=== PATIENT | male | born 1960 | race African-American/Black ===

== ENCOUNTER 2018-09-29 19:30 | Inpatient (IN) ==
[2018-09-29 21:13] LABS: Basophils % 0.4 % (0.0-0.8); Hematocrit 44.8 VOL% (42.0-52.0); Hemoglobin 14.2 GM/DL (14.0-18.0); Immature Granulocytes % 1.1 %; Immature Granulocytes Absolute 0.06 #; Lymphocytes # 0.8 10*3/uL (1.4-4.0); Lymphocytes % 14.2 % (21.2-54.2); Mean Corpuscular HGB Conc 31.7 GM/DL (32-36); Mean Corpuscular Volume 86.7 FL (87-102); Mean Platelet Volume 10.2 FL (9.6-12.0); Monocytes % 2.7 % (1.7-12.7); Neutrophils % 81.6 % (38.7-73.9); Platelet Count 247 T/CUMM (130-400); Red Blood Count 5.17 MC/CUMM (3.8-5.5); Red Cell Distribution Width 12.4 % (9.3-17.3); White Blood Count 5.6 T/CUMM (4-12)
[2018-09-29] MEDS ORDERED: ONDANSETRON 4 MG/2 ML VIAL IV STA (21:17)
[2018-09-29] MEDS ORDERED: SODIUM CHLORIDE 0.9% 1,000 ML IV STA (21:17)
[2018-09-29 21:45] LABS: Allen Test Positive; Pt O2 Delivery Device Room Air
[2018-09-29 21:46] LABS: ABG Base Excess -2.2 MMOL/L (-2.5-2.5); ABG HCO3 22.6 MMOL/L (20-26); ABG Oxygen Saturation 97.7 % (95-100); ABG PCO2 28.5 MM HG (35-48); ABG PH 7.461 (7.35-7.45); ABG TCO2 17.5 MMOL/L (23-27)
[2018-09-29 21:52] LABS: Alanine Aminotransferase 38 U/L (16-61); Albumin 2.6 G/DL (3.4-5.0); Alkaline Phosphatase 63 U/L (45-117); Aspartate Amino Transferase 72 U/L (0-37); Blood Urea Nitrogen 33 MG/DL (7-18); Calcium 9.4 MG/DL (8.5-10.1); Osmolality,Calculated 290.9 MOS/KG (273-304); Total Protein 7.8 G/DL (6.4-8.3)
[2018-09-29 21:55] LABS: Amylase 51 U/L (25-115); Troponin I 0.049 NG/ML (0.00-0.045)
[2018-09-29 21:55] LABS: Glucose 574 MG/DL (74-106)
[2018-09-29] MEDS ORDERED: INSULIN REGULAR 100 UNIT/ML IV STA (22:00)
[2018-09-29] MEDS ORDERED: SODIUM CHLORIDE 0.9% 1,900 ML IV ONE (22:17)
[2018-09-29] MEDS ORDERED: PIPERACILLIN/TAZOBACTAM 3,375 MG in SODIUM CHLORIDE 0.9% 100 ML IV SCH (22:30)
[2018-09-29 23:43] LABS: Platelet Estimate Adequate
[2018-09-30] MEDS ORDERED: ALBUTEROL 2.5 MG/3 ML NEB RESP TX PRN (00:03)
[2018-09-30] MEDS ORDERED: BISACODYL 5 MG TABLET PO PRN (00:03)
[2018-09-30] MEDS ORDERED: ACETAMINOPHEN 325 MG TABLET PO PRN (00:03)
[2018-09-30] MEDS ORDERED: NICOTINE 21 MG/24 HR PATCH TRANSDERM PRN (00:03)
[2018-09-30] MEDS ORDERED: GLUCAGON 1 MG VIAL IM PRN ×2 (00:03→05:17)
[2018-09-30] MEDS ORDERED: ONDANSETRON 4 MG/2 ML VIAL IV PRN (00:03)
[2018-09-30] MEDS ORDERED: DEXTROSE 50% 25 GM/50 ML VIAL IV PRN ×3 (00:03→05:17)
[2018-09-30] MEDS ORDERED: MORPHINE 4 MG/1 ML VIAL IV PRN (00:03)
[2018-09-30] MEDS ORDERED: MAGNESIUM SULF RIDER 2 GM in PREMIX 1 EACH IV PRN (00:17)
[2018-09-30] MEDS ORDERED: POTASSIUM CHLORIDE RIDER 10 MEQ in PREMIX 1 EACH IV PRN (00:17)
[2018-09-30] MEDS ORDERED: MAGNESIUM SULF RIDER 4 GM in PREMIX 1 EACH IV PRN (00:17)
[2018-09-30] MEDS ORDERED: SODIUM PHOSPHATE INJ 15.9 MMOL in SODIUM CHLORIDE 0.9% 250 ML IV PRN (00:17)
[2018-09-30] MEDS ORDERED: SODIUM BICARB INJ 100 MEQ in STERILE WATER INJ 400 ML IV PRN (00:17)
[2018-09-30] MEDS ORDERED: INSULIN REGULAR 100 UNIT/ML IV ONE (00:17)
[2018-09-30] MEDS ORDERED: INSULIN REGULAR DRIP 100 ML IV SCH (00:30)
[2018-09-30 00:59] LABS: Apearance,Urine CLEAR (Clear); Bacteria,Urine Occasional /HPF (Few); Bilirubin,Urine Negative (Negative); Blood, Urine Small mg/dL (Negative); Glucose,Urine (UA) >=500 mg/dL (Negative); Hyaline Casts,Urine 29 /LPF (0-3); Ketones,Urine 20 mg/dL (Negative); Mucus,Urine Occasional /LPF (Occasional); Nitrite,Urine Negative (Negative); Protein,Urine 100 MG/DL; RBC,Urine <1 /HPF (0-4); Squamous Epithelial Cell,Urine Occasional /HPF (0-10); Urine Color Yellow (Yellow); Urine Specific Gravity 1.029 (1.001-1.035); Urine Urobilinogen < 2.0 EU/DL (0.2-1.0); WBC,Urine 1 /HPF (0-6)
[2018-09-30 01:08] LABS: Barbiturates Screen,Urine Negative (Negative); Benzodiazepines Screen,Urine Negative (Negative); Cannabinoid Screen,Urine Negative (Negative); Opiate Screen,Urine Negative (Negative); Phencyclidine Screen,Urine Negative (Negative)
[2018-09-30] MEDS: SODIUM CHLORIDE 0.9% 1,000 ML IV SCH (02:00)
[2018-09-30 02:05] LABS: ABG Base Excess -1.9 MMOL/L (-2.5-2.5); ABG HCO3 21.8 MMOL/L (20-26); ABG Oxygen Saturation 97.9 % (95-100); ABG PCO2 33.7 MM HG (35-48); ABG PH 7.429 (7.35-7.45); ABG PO2 124.9 MM HG (80-95); ABG TCO2 22.9 MMOL/L (23-27)
[2018-09-30 04:12] LABS: ABG Base Excess -0.9 MMOL/L (-2.5-2.5); ABG HCO3 23.6 MMOL/L (20-26); ABG Oxygen Saturation 97.9 % (95-100); ABG PCO2 36.3 MM HG (35-48); ABG PH 7.414 (7.35-7.45); ABG TCO2 20.6 MMOL/L (23-27); Allen Test Positive; Pt O2 Delivery Device Room Air
[2018-09-30 05:01] LABS: Bilirubin,Total 0.6 MG/DL (0.2-1.0); Calcium 8.2 MG/DL (8.5-10.1); Osmolality,Calculated 289.4 MOS/KG (273-304); Total Protein 6.4 G/DL (6.4-8.3)
[2018-09-30 05:50] LABS: Hematocrit 35.1 VOL% (42.0-52.0); Hemoglobin 11.2 GM/DL (14.0-18.0); Immature Granulocytes % 1.4 %; Immature Granulocytes Absolute 0.05 #; Lymphocytes # 0.9 10*3/uL (1.4-4.0); Lymphocytes % 24.6 % (21.2-54.2); Mean Corpuscular HGB Conc 31.9 GM/DL (32-36); Mean Corpuscular Volume 86.7 FL (87-102); Mean Platelet Volume 9.9 FL (9.6-12.0); Monocytes % 3.8 % (1.7-12.7); Neutrophils % 70.2 % (38.7-73.9); Platelet Count 175 T/CUMM (130-400); Red Blood Count 4.05 MC/CUMM (3.8-5.5); Red Cell Distribution Width 12.2 % (9.3-17.3); White Blood Count 3.5 T/CUMM (4-12)
[2018-09-30 05:51] LABS: Hepatitis B Core IgM Quant 0.11 Index; Hepatitis B Surface Ag Quant < 0.10 Index; Hepatitis B Surface Ag Result Negative (Negative); Hepatitis C Virus Ab Quant 0.22 Index; Hepatitis C Virus Ab Result Negative (Negative)
[2018-09-30] MEDS: INSULIN REGULAR 100 UNIT/ML SUBCUT SCH ×4 (06:18→21:15)
[2018-09-30 06:22] LABS: Hypochromasia Slight; Platelet Estimate Adequate
[2018-09-30 06:53] LABS: HIV Antigen/Antibody Result Nonreactive (Nonreactive)
[2018-09-30 08:53] LABS: Calcium 8.2 MG/DL (8.5-10.1); Osmolality,Calculated 286.4 MOS/KG (273-304)
[2018-09-30] MEDS: PANTOPRAZOLE 40 MG TABLET PO SCH (09:28)
[2018-09-30] MEDS: LEVOFLOXACIN 500 MG TABLET PO SCH (09:28)
[2018-09-30] MEDS: LACTATED RINGERS 1,000 ML IV SCH ×2 (09:30→17:41)
[2018-09-30] MEDS ORDERED: SODIUM CHLORIDE 0.45% 1,000 ML IV SCH (17:17)
[2018-09-30] MEDS: glipiZIDE 5 MG TABLET PO SCH (17:45)
[2018-10-01] MEDS: LACTATED RINGERS 1,000 ML IV SCH ×4 (00:50→22:49)
[2018-10-01] MEDS: SODIUM CHLORIDE 0.9% 1,000 ML IV SCH (00:57)
[2018-10-01] MEDS: INSULIN REGULAR 100 UNIT/ML SUBCUT SCH ×5 (00:57→20:28)
[2018-10-01 04:33] LABS: Hematocrit 33.1 VOL% (42.0-52.0); Hemoglobin 10.4 GM/DL (14.0-18.0); Immature Granulocytes % 1.3 %; Immature Granulocytes Absolute 0.03 #; Lymphocytes # 0.8 10*3/uL (1.4-4.0); Lymphocytes % 35.9 % (21.2-54.2); Mean Corpuscular HGB Conc 31.4 GM/DL (32-36); Mean Platelet Volume 9.9 FL (9.6-12.0); Monocytes % 4.3 % (1.7-12.7); Neutrophils % 58.5 % (38.7-73.9); Platelet Count 177 T/CUMM (130-400); Red Blood Count 3.85 MC/CUMM (3.8-5.5); Red Cell Distribution Width 12.3 % (9.3-17.3); White Blood Count 2.3 T/CUMM (4-12)
[2018-10-01 04:59] LABS: Calcium 8.4 MG/DL (8.5-10.1); Osmolality,Calculated 278.5 MOS/KG (273-304)
[2018-10-01 05:22] LABS: Platelet Estimate Adequate
[2018-10-01] MEDS: PANTOPRAZOLE 40 MG TABLET PO SCH (09:02)
[2018-10-01] MEDS: glipiZIDE 5 MG TABLET PO SCH ×2 (09:02→16:49)
[2018-10-01] MEDS: LEVOFLOXACIN 500 MG TABLET PO SCH (09:02)
[2018-10-02] MEDS: LACTATED RINGERS 1,000 ML IV SCH (06:25)
[2018-10-02] MEDS: INSULIN REGULAR 100 UNIT/ML SUBCUT SCH ×2 (09:08→13:34)
[2018-10-02] MEDS: glipiZIDE 5 MG TABLET PO SCH (09:19)
[2018-10-02] MEDS: PANTOPRAZOLE 40 MG TABLET PO SCH (09:19)
[2018-10-02] MEDS: LEVOFLOXACIN 500 MG TABLET PO SCH (09:19)
[2018-10-02 12:21] VITALS: BP 131/77
== END 2018-10-02 13:18 | disposition home or self-care (01) | DRG 638 ==
LOC: N.ED 19:30 → N.EDINP 09-30 00:04 → SUATTDRO 09-30 00:04 → N.CC 09-30 03:55 → N.4E 10-01 05:28
PROVIDERS: ADMIT Internal Medicine; ATTEND Emergency Medicine

== ENCOUNTER 2022-04-03 01:19 | Inpatient (IN) ==
[2022-04-03] MEDS ORDERED: SODIUM CHLORIDE 0.9% 1,000 ML IV STA ×2 (01:55→02:49)
[2022-04-03 02:20] LABS: Basophils # 0.1 10*3/uL (0.0-0.2); Basophils % 0.3 % (0.0-0.8); Hematocrit 42.3 VOL% (42.0-52.0); Hemoglobin 13.4 GM/DL (14.0-18.0); Immature Granulocytes Absolute 0.49 #; Lymphocytes # 0.7 10*3/uL (1.4-4.0); Lymphocytes % 2.8 % (21.2-54.2); Mean Corpuscular HGB Conc 31.7 GM/DL (32-36); Mean Corpuscular Volume 90.6 FL (87-102); Mean Platelet Volume 9.5 FL (9.6-12.0); Monocytes # 1.3 10*3/uL (0.11-0.8); Monocytes % 5.2 % (1.7-12.7); Neutrophils % 89.7 % (38.7-73.9); Platelet Count 392 T/CUMM (130-400); Red Blood Count 4.67 MC/CUMM (3.8-5.5); White Blood Count 24.7 T/CUMM (4-12)
[2022-04-03 02:45] LABS: Albumin 2.4 G/DL (3.4-5.0); Bilirubin,Total 0.5 MG/DL (0.20-1.00); Calcium 10.8 MG/DL (8.5-10.1); Osmolality,Calculated 293.9 MOS/KG (273-304); Potassium 5.1 MMOL/L (3.5-5.1); Total Protein 9.7 G/DL (6.4-8.2)
[2022-04-03] MEDS ORDERED: INSULIN REGULAR 100 UNIT/ML IV STA (02:49)
[2022-04-03 02:50] LABS: Thyroid Stimulating Hormone 1.4 uIU/ml (0.358-3.74)
[2022-04-03 03:00] LABS: Band Neutrophils 3 % (0-10); Lymphocytes 4 % (20-55); Platelet Estimate Adequate; Total Cells Counted 100
[2022-04-03 03:07] LABS: Arterial Base Excess iSTAT -15 MMOL/L (-2.5-2.5); Arterial Bicarbonate iSTAT 10.1 MMOL/L (20-26); Arterial O2 Saturation iSTAT 98 % (95-100); Arterial PCO2 iSTAT 22 MM HG (35-48); Arterial PO2 iSTAT 114 MM HG (80-95); Arterial Total CO2 iSTAT 11 MMO/L (23-27); Arterial pH iSTAT 7.263 (7.35-7.45)
[2022-04-03] MEDS ORDERED: INSULIN REGULAR DRIP 100 ML IV PRN (03:31)
[2022-04-03 03:58] LABS: Hyaline Casts,Urine 3 /LPF (0-3); Mucus,Urine Occasional /LPF (Occasional); RBC,Urine 1 /HPF (0-4); Squamous Epithelial Cell,Urine Occasional /HPF (0-10)
[2022-04-03 03:59] LABS: Bilirubin,Urine Small mg/dL (Negative); Blood, Urine Trace mg/dL (Negative); Glucose,Urine (UA) 500 mg/dL (Negative); Ketones,Urine >160 mg/dL (Negative); Nitrite,Urine Negative (Negative); Protein,Urine Negative (Negative); Urine Appearance Clear (Clear); Urine Color Light Yellow (Yellow); Urine Specific Gravity 1.025 (1.001-1.035); Urine Urobilinogen 0.2 eU/dL (<2.0)
[2022-04-03] MEDS ORDERED: MAGNESIUM SULF RIDER 2 GM/50 ML PREMIX IV PRN (04:17)
[2022-04-03] MEDS ORDERED: SODIUM PHOSPHATE INJ 16.4 MMOL in SODIUM CHLORIDE 0.9% 250 ML IV PRN (04:17)
[2022-04-03] MEDS ORDERED: MAGNESIUM SULF RIDER 4 GM/100 ML PREMIX IV PRN (04:17)
[2022-04-03] MEDS ORDERED: SODIUM BICARB INJ 100 MEQ in STERILE WATER INJ 400 ML IV PRN (04:17)
[2022-04-03] MEDS ORDERED: hydrALAZINE 20 MG/1 ML VIAL IV PRN (04:21)
[2022-04-03] MEDS ORDERED: ALBUTEROL 2.5 MG/3 ML NEB RESP TX PRN (04:21)
[2022-04-03] MEDS ORDERED: ONDANSETRON 4 MG/2 ML VIAL IV PRN (04:21)
[2022-04-03] MEDS ORDERED: DEXTROSE 10% 250 ML BAG IV PRN ×2 (04:26)
[2022-04-03] MEDS: SODIUM CHLORIDE 0.9% 1,000 ML IV SCH ×2 (04:37→06:35)
[2022-04-03 05:17] LABS: Calcium 9.3 MG/DL (8.5-10.1); Osmolality,Calculated 300.7 MOS/KG (273-304); Potassium 4.6 MMOL/L (3.5-5.1)
[2022-04-03 08:38] LABS: Calcium 9.2 MG/DL (8.5-10.1); Osmolality,Calculated 291.8 MOS/KG (273-304); Potassium 4.6 MMOL/L (3.5-5.1)
[2022-04-03] MEDS ORDERED: ENOXAPARIN 40 MG/0.4 ML SYRINGE SUBCUT SCH (09:00)
[2022-04-03] MEDS ORDERED: SODIUM CHLORIDE 0.9% 1,000 ML IV SCH (09:30)
[2022-04-03 12:51] LABS: Calcium 8.4 MG/DL (8.5-10.1); Osmolality,Calculated 294.3 MOS/KG (273-304); Potassium 4.4 MMOL/L (3.5-5.1)
[2022-04-03] MEDS: SODIUM CHLOR 0.45% KCL 20 MEQ 20 MEQ/1,000 ML BAG IV SCH ×2 (13:30→19:29)
[2022-04-03] MEDS: VANCOMYCIN INJ 1,000 MG in SODIUM CHLORIDE 0.9% 250 ML IV SCH (15:45)
[2022-04-03] MEDS: PIPERACILLIN/TAZOBACTAM 3,375 MG in SODIUM CHLORIDE 0.9% 100 ML IV SCH ×2 (16:45→23:20)
[2022-04-03] MEDS: INSULIN GLARGINE 100 UNIT/ML SUBCUT SCH (18:02)
[2022-04-03] MEDS: INSULIN LISPRO 100 UNIT/ML SUBCUT SCH ×2 (18:03→20:46)
[2022-04-03] MEDS: glipiZIDE 5 MG TABLET PO SCH (18:03)
[2022-04-03 18:42] LABS: Blood Urea Nitrogen 12 MG/DL (7-18); Carbon Dioxide 12 MMOL/L (21-32); Chloride 128 MMOL/L (98-107); Glucose 141 MG/DL (74-106); Osmolality,Calculated 297.1 MOS/KG (273-304); Sodium 149 MMOL/L (136-145)
[2022-04-03 18:49] LABS: Calcium < 5.0 MG/DL (8.5-10.1)
[2022-04-03 18:51] LABS: Potassium 2.3 MMOL/L (3.5-5.1)
[2022-04-03 19:41] LABS: Calcium 8.5 MG/DL (8.5-10.1); Potassium 4.1 MMOL/L (3.5-5.1)
[2022-04-03] MEDS ORDERED: SODIUM CHLORIDE 0.45% 1,000 ML IV SCH (21:30)
[2022-04-03] MEDS: ACETAMINOPHEN 325 MG TABLET PO PRN (23:15)
[2022-04-04 01:25] LABS: Calcium 9.1 MG/DL (8.5-10.1); Osmolality,Calculated 276.1 MOS/KG (273-304); Potassium 3.9 MMOL/L (3.5-5.1)
[2022-04-04] MEDS: VANCOMYCIN INJ 1,000 MG in SODIUM CHLORIDE 0.9% 250 ML IV SCH ×2 (02:51→15:11)
[2022-04-04 05:52] LABS: Basophils % 0.2 % (0.0-0.8); Hematocrit 32.6 VOL% (42.0-52.0); Hemoglobin 10.8 GM/DL (14.0-18.0); Immature Granulocytes % 1.1 %; Lymphocytes # 1.3 10*3/uL (1.4-4.0); Lymphocytes % 6.9 % (21.2-54.2); Mean Corpuscular HGB Conc 33.1 GM/DL (32-36); Mean Corpuscular Volume 87.2 FL (87-102); Mean Platelet Volume 9.1 FL (9.6-12.0); Monocytes # 1.7 10*3/uL (0.11-0.8); Monocytes % 9.4 % (1.7-12.7); Neutrophils % 82.4 % (38.7-73.9); Platelet Count 300 T/CUMM (130-400); Red Blood Count 3.74 MC/CUMM (3.8-5.5); Red Cell Distribution Width 12.9 % (9.3-17.3); White Blood Count 18.2 T/CUMM (4-12)
[2022-04-04] MEDS ORDERED: FAMOTIDINE 20 MG TABLET PO ONE (06:00)
[2022-04-04 06:09] LABS: Phosphorous 1.3 MG/DL (2.5-4.9)
[2022-04-04 06:13] LABS: Alanine Aminotransferase < 9 U/L (16-61); Albumin 1.8 G/DL (3.4-5.0); Alkaline Phosphatase 96 U/L (45-117); Aspartate Amino Transferase 16 U/L (0-37); Blood Urea Nitrogen 15 MG/DL (7-18); Calcium 8.9 MG/DL (8.5-10.1); Carbon Dioxide 25 MMOL/L (21-32); Chloride 108 MMOL/L (98-107); Glucose 166 MG/DL (74-106); Osmolality,Calculated 279.7 MOS/KG (273-304); Potassium 3.9 MMOL/L (3.5-5.1); Sodium 138 MMOL/L (136-145); Total Protein 6.4 G/DL (6.4-8.2)
[2022-04-04 06:15] LABS: Hypochromia Slight; Lymphocytes 9 % (20-55); Microcytosis Slight; Platelet Estimate Adequate; Total Cells Counted 100
[2022-04-04 06:23] LABS: % Iron Saturation 14.2 % (18-50); Ferritin 1607.7 ng/mL (26-388)
[2022-04-04] MEDS: POTASSIUM CHLORIDE RIDER 10 MEQ/100 ML PREMIX IV PRN (06:30)
[2022-04-04] MEDS ORDERED: LIDOCAINE 1%/EPI INJ 20 ML VIAL ONE (06:33)
[2022-04-04] MEDS ORDERED: BUPIVACAINE MPF 0.25% 10 ML VIAL ONE (06:33)
[2022-04-04] MEDS ORDERED: LIDOCAINE 2% 5 ML VIAL ONE (06:55)
[2022-04-04] MEDS ORDERED: propofoL 200 MG/20 ML VIAL IV ONE (06:55)
[2022-04-04] MEDS ORDERED: fentaNYL 100 MCG/2 ML VIAL ONE (06:55)
[2022-04-04] MEDS ORDERED: MIDAZOLAM 2 MG/2 ML VIAL ONE (06:55)
[2022-04-04] MEDS: INSULIN LISPRO 100 UNIT/ML SUBCUT SCH ×4 (07:16→20:21)
[2022-04-04] MEDS ORDERED: ONDANSETRON 4 MG/2 ML VIAL ONE (07:51)
[2022-04-04] MEDS ORDERED: PHENYLEPHRINE 1 MG/10 ML SYRINGE IV ONE (07:51)
[2022-04-04] MEDS ORDERED: SEVOFLURANE 1 UNIT/15 MINUTE INH ONE (07:51)
[2022-04-04] MEDS ORDERED: METOPROLOL TARTRATE 5 MG/5 ML VIAL IV ONE (08:12)
[2022-04-04] MEDS ORDERED: SODIUM PHOSPHATE INJ 30 MMOL in SODIUM CHLORIDE 0.9% 250 ML IV ONE (10:00)
[2022-04-04] MEDS: glipiZIDE 5 MG TABLET PO SCH ×2 (10:43→16:24)
[2022-04-04] MEDS: PIPERACILLIN/TAZOBACTAM 3,375 MG in SODIUM CHLORIDE 0.9% 100 ML IV SCH ×3 (10:44→23:15)
[2022-04-04] MEDS: INSULIN GLARGINE 100 UNIT/ML SUBCUT SCH (10:45)
[2022-04-04] MEDS: FERRIC GLUCONATE COMPLEX 125 MG in SODIUM CHLORIDE 0.9% 100 ML IV SCH (16:15)
[2022-04-04] MEDS: ACETAMINOPHEN 325 MG TABLET PO PRN (19:55)
[2022-04-05] MEDS: VANCOMYCIN INJ 1,000 MG in SODIUM CHLORIDE 0.9% 250 ML IV SCH ×2 (03:15→16:01)
[2022-04-05 06:16] LABS: Basophils % 0.1 % (0.0-0.8); Eosinophils % 0.1 % (0.00-10.9); Hematocrit 30.1 VOL% (42.0-52.0); Hemoglobin 9.7 GM/DL (14.0-18.0); Immature Granulocytes % 0.9 %; Immature Granulocytes Absolute 0.14 #; Lymphocytes # 1.2 10*3/uL (1.4-4.0); Lymphocytes % 7.5 % (21.2-54.2); Mean Corpuscular HGB Conc 32.2 GM/DL (32-36); Mean Corpuscular Volume 85.8 FL (87-102); Mean Platelet Volume 9.4 FL (9.6-12.0); Monocytes # 0.8 10*3/uL (0.11-0.8); Monocytes % 5.3 % (1.7-12.7); Neutrophils % 86.1 % (38.7-73.9); Platelet Count 286 T/CUMM (130-400); Red Blood Count 3.51 MC/CUMM (3.8-5.5); White Blood Count 15.7 T/CUMM (4-12)
[2022-04-05 06:38] LABS: Hypochromia Slight; Lymphocytes 5 % (20-55); Microcytosis Slight; Platelet Estimate Adequate; Total Cells Counted 100
[2022-04-05 06:40] LABS: Albumin 1.5 G/DL (3.4-5.0); Bilirubin,Total 0.5 MG/DL (0.20-1.00); Calcium 8.5 MG/DL (8.5-10.1); Potassium 3.5 MMOL/L (3.5-5.1); Total Protein 6.5 G/DL (6.4-8.2)
[2022-04-05] MEDS: POTASSIUM CHLORIDE RIDER 10 MEQ/100 ML PREMIX IV PRN ×3 (06:58→09:06)
[2022-04-05] MEDS: INSULIN LISPRO 100 UNIT/ML SUBCUT SCH ×4 (07:16→20:46)
[2022-04-05] MEDS: PIPERACILLIN/TAZOBACTAM 3,375 MG in SODIUM CHLORIDE 0.9% 100 ML IV SCH ×3 (08:02→23:23)
[2022-04-05] MEDS: FERRIC GLUCONATE COMPLEX 125 MG in SODIUM CHLORIDE 0.9% 100 ML IV SCH (08:02)
[2022-04-05] MEDS: glipiZIDE 5 MG TABLET PO SCH ×2 (09:06→16:57)
[2022-04-05] MEDS: INSULIN GLARGINE 100 UNIT/ML SUBCUT SCH (09:07)
[2022-04-05] MEDS ORDERED: SODIUM HYPOCHLORITE 0.25% IRRIG 473 ML BOTTLE TOP SCH (11:30)
[2022-04-05] MEDS ORDERED: chlorproMAZINE 25 MG TABLET PO PRN (11:55)
[2022-04-05] MEDS: ACETAMINOPHEN 325 MG TABLET PO PRN (16:02)
[2022-04-06] MEDS: VANCOMYCIN INJ 1,000 MG in SODIUM CHLORIDE 0.9% 250 ML IV SCH (03:40)
[2022-04-06 05:16] LABS: Basophils % 0.1 % (0.0-0.8); Eosinophils # 0.1 10*3/uL (0.0-0.87); Eosinophils % 0.5 % (0.00-10.9); Hematocrit 29.1 VOL% (42.0-52.0); Hemoglobin 9.5 GM/DL (14.0-18.0); Immature Granulocytes Absolute 0.14 #; Lymphocytes # 1.3 10*3/uL (1.4-4.0); Lymphocytes % 9.7 % (21.2-54.2); Mean Corpuscular HGB Conc 32.6 GM/DL (32-36); Mean Corpuscular Volume 86.9 FL (87-102); Mean Platelet Volume 9.4 FL (9.6-12.0); Monocytes # 0.9 10*3/uL (0.11-0.8); Monocytes % 6.5 % (1.7-12.7); Neutrophils % 82.2 % (38.7-73.9); Platelet Count 278 T/CUMM (130-400); Red Blood Count 3.35 MC/CUMM (3.8-5.5); Red Cell Distribution Width 13.2 % (9.3-17.3); White Blood Count 13.8 T/CUMM (4-12)
[2022-04-06 05:32] LABS: Albumin 1.5 G/DL (3.4-5.0); Bilirubin,Total 0.4 MG/DL (0.20-1.00); Calcium 8.2 MG/DL (8.5-10.1); Osmolality,Calculated 282.4 MOS/KG (273-304); Potassium 3.9 MMOL/L (3.5-5.1); Total Protein 6.8 G/DL (6.4-8.2)
[2022-04-06 05:43] LABS: Band Neutrophils 8 % (0-10); Lymphocytes 13 % (20-55); Platelet Estimate Normal; Total Cells Counted 100
[2022-04-06 05:44] LABS: Anisocytosis 1+; Burr Cells Few
[2022-04-06] MEDS: glipiZIDE 5 MG TABLET PO SCH ×2 (08:37→16:52)
[2022-04-06] MEDS: INSULIN LISPRO 100 UNIT/ML SUBCUT SCH ×4 (08:38→21:46)
[2022-04-06] MEDS: PIPERACILLIN/TAZOBACTAM 3,375 MG in SODIUM CHLORIDE 0.9% 100 ML IV SCH ×3 (08:39→23:33)
[2022-04-06] MEDS: FERRIC GLUCONATE COMPLEX 125 MG in SODIUM CHLORIDE 0.9% 100 ML IV SCH (09:46)
[2022-04-06] MEDS: INSULIN GLARGINE 100 UNIT/ML SUBCUT SCH (09:47)
[2022-04-06] MEDS: SODIUM HYPOCHLORITE 0.25% IRRIG 473 ML BOTTLE TOP SCH (12:45)
[2022-04-06] MEDS: ACETAMINOPHEN 325 MG TABLET PO PRN (16:52)
[2022-04-07] MEDS: VANCOMYCIN INJ 1,000 MG in SODIUM CHLORIDE 0.9% 250 ML IV SCH ×2 (03:41→15:04)
[2022-04-07 04:35] LABS: Basophils % 0.1 % (0.0-0.8); Eosinophils # 0.1 10*3/uL (0.0-0.87); Eosinophils % 0.4 % (0.00-10.9); Hematocrit 28.7 VOL% (42.0-52.0); Hemoglobin 9.4 GM/DL (14.0-18.0); Immature Granulocytes % 1.2 %; Immature Granulocytes Absolute 0.16 #; Lymphocytes # 1.6 10*3/uL (1.4-4.0); Lymphocytes % 11.2 % (21.2-54.2); Mean Corpuscular HGB Conc 32.8 GM/DL (32-36); Mean Corpuscular Volume 85.9 FL (87-102); Mean Platelet Volume 9.2 FL (9.6-12.0); Monocytes % 7.4 % (1.7-12.7); Neutrophils % 79.7 % (38.7-73.9); Platelet Count 302 T/CUMM (130-400); Red Blood Count 3.34 MC/CUMM (3.8-5.5); Red Cell Distribution Width 13.2 % (9.3-17.3); White Blood Count 13.8 T/CUMM (4-12)
[2022-04-07 04:46] LABS: Calcium 8.7 MG/DL (8.5-10.1); Osmolality,Calculated 277.7 MOS/KG (273-304); Potassium 3.5 MMOL/L (3.5-5.1)
[2022-04-07 05:05] LABS: Band Neutrophils 3 % (0-10); Hypochromia Slight; Lymphocytes 11 % (20-55); Microcytosis Slight; Nucleated Red Blood Cells 1 /100 WBC (0-5); Platelet Estimate Adequate; Total Cells Counted 100
[2022-04-07] MEDS: INSULIN LISPRO 100 UNIT/ML SUBCUT SCH ×4 (08:44→21:30)
[2022-04-07] MEDS: glipiZIDE 5 MG TABLET PO SCH ×2 (08:44→16:55)
[2022-04-07] MEDS: PIPERACILLIN/TAZOBACTAM 3,375 MG in SODIUM CHLORIDE 0.9% 100 ML IV SCH ×3 (08:45→23:51)
[2022-04-07] MEDS: SODIUM HYPOCHLORITE 0.25% IRRIG 473 ML BOTTLE TOP SCH (08:46)
[2022-04-07] MEDS: ACETAMINOPHEN 325 MG TABLET PO PRN (08:48)
[2022-04-07] MEDS: INSULIN GLARGINE 100 UNIT/ML SUBCUT SCH (08:49)
[2022-04-07] MEDS: FERRIC GLUCONATE COMPLEX 125 MG in SODIUM CHLORIDE 0.9% 100 ML IV SCH (08:49)
[2022-04-08] MEDS: VANCOMYCIN INJ 1,000 MG in SODIUM CHLORIDE 0.9% 250 ML IV SCH ×2 (04:02→15:37)
[2022-04-08 05:11] LABS: Basophils % 0.2 % (0.0-0.8); Eosinophils # 0.1 10*3/uL (0.0-0.87); Eosinophils % 1.2 % (0.00-10.9); Hemoglobin 9.1 GM/DL (14.0-18.0); Immature Granulocytes % 1.3 %; Immature Granulocytes Absolute 0.15 #; Lymphocytes # 1.8 10*3/uL (1.4-4.0); Lymphocytes % 16.3 % (21.2-54.2); Mean Corpuscular HGB Conc 32.5 GM/DL (32-36); Mean Corpuscular Volume 86.2 FL (87-102); Monocytes # 1.1 10*3/uL (0.11-0.8); Monocytes % 9.7 % (1.7-12.7); Neutrophils % 71.3 % (38.7-73.9); Platelet Count 341 T/CUMM (130-400); Red Blood Count 3.25 MC/CUMM (3.8-5.5); Red Cell Distribution Width 13.4 % (9.3-17.3); White Blood Count 11.3 T/CUMM (4-12)
[2022-04-08 05:25] LABS: Calcium 8.3 MG/DL (8.5-10.1); Osmolality,Calculated 277.4 MOS/KG (273-304); Potassium 3.4 MMOL/L (3.5-5.1)
[2022-04-08 06:47] LABS: Hypochromia Slight; Lymphocytes 13 % (20-55); Microcytosis Slight; Platelet Estimate Adequate; Total Cells Counted 100
[2022-04-08] MEDS: INSULIN GLARGINE 100 UNIT/ML SUBCUT SCH (09:24)
[2022-04-08] MEDS: PIPERACILLIN/TAZOBACTAM 3,375 MG in SODIUM CHLORIDE 0.9% 100 ML IV SCH ×3 (09:24→23:18)
[2022-04-08] MEDS: FERRIC GLUCONATE COMPLEX 125 MG in SODIUM CHLORIDE 0.9% 100 ML IV SCH (09:24)
[2022-04-08] MEDS: SODIUM HYPOCHLORITE 0.25% IRRIG 473 ML BOTTLE TOP SCH (09:24)
[2022-04-08] MEDS: INSULIN LISPRO 100 UNIT/ML SUBCUT SCH ×4 (09:24→20:35)
[2022-04-08] MEDS: glipiZIDE 5 MG TABLET PO SCH ×2 (09:24→15:37)
[2022-04-09] MEDS: VANCOMYCIN INJ 1,000 MG in SODIUM CHLORIDE 0.9% 250 ML IV SCH (03:56)
[2022-04-09 06:19] LABS: Calcium 8.4 MG/DL (8.5-10.1); Osmolality,Calculated 270.7 MOS/KG (273-304); Potassium 3.2 MMOL/L (3.5-5.1)
[2022-04-09] MEDS: INSULIN LISPRO 100 UNIT/ML SUBCUT SCH ×4 (07:53→20:35)
[2022-04-09] MEDS ORDERED: GLUCAGON 1 MG VIAL IM PRN (07:54)
[2022-04-09] MEDS: glipiZIDE 5 MG TABLET PO SCH ×2 (09:25→16:45)
[2022-04-09] MEDS: INSULIN GLARGINE 100 UNIT/ML SUBCUT SCH (09:26)
[2022-04-09] MEDS: FERRIC GLUCONATE COMPLEX 125 MG in SODIUM CHLORIDE 0.9% 100 ML IV SCH (09:27)
[2022-04-09] MEDS: SODIUM HYPOCHLORITE 0.25% IRRIG 473 ML BOTTLE TOP SCH (09:27)
[2022-04-09] MEDS: PIPERACILLIN/TAZOBACTAM 3,375 MG in SODIUM CHLORIDE 0.9% 100 ML IV SCH ×3 (11:25→23:42)
[2022-04-09] MEDS ORDERED: POTASSIUM CHLORIDE 20 MEQ TABLET PO ONE (12:00)
[2022-04-09] MEDS: FERROUS SULFATE 325 MG TABLET PO SCH (17:52)
[2022-04-09] MEDS: ACETAMINOPHEN 325 MG TABLET PO PRN (20:35)
[2022-04-10 05:15] LABS: Basophils % 0.2 % (0.0-0.8); Eosinophils # 0.1 10*3/uL (0.0-0.87); Eosinophils % 0.7 % (0.00-10.9); Hematocrit 27.6 VOL% (42.0-52.0); Hemoglobin 8.9 GM/DL (14.0-18.0); Immature Granulocytes % 1.4 %; Immature Granulocytes Absolute 0.19 #; Lymphocytes # 2.1 10*3/uL (1.4-4.0); Lymphocytes % 15.6 % (21.2-54.2); Mean Corpuscular HGB Conc 32.2 GM/DL (32-36); Mean Corpuscular Volume 87.1 FL (87-102); Mean Platelet Volume 8.8 FL (9.6-12.0); Monocytes # 1.5 10*3/uL (0.11-0.8); Monocytes % 10.8 % (1.7-12.7); Neutrophils % 71.3 % (38.7-73.9); Platelet Count 417 T/CUMM (130-400); Red Blood Count 3.17 MC/CUMM (3.8-5.5); Red Cell Distribution Width 13.8 % (9.3-17.3); White Blood Count 13.6 T/CUMM (4-12)
[2022-04-10 05:42] LABS: Lymphocytes 15 % (20-55); Platelet Estimate Adequate; Total Cells Counted 100
[2022-04-10 05:43] LABS: Calcium 8.7 MG/DL (8.5-10.1); Hypochromia Slight; Microcytosis Slight; Osmolality,Calculated 278.3 MOS/KG (273-304); Potassium 4.1 MMOL/L (3.5-5.1)
[2022-04-10] MEDS: PIPERACILLIN/TAZOBACTAM 3,375 MG in SODIUM CHLORIDE 0.9% 100 ML IV SCH ×3 (08:36→23:09)
[2022-04-10] MEDS: FERROUS SULFATE 325 MG TABLET PO SCH ×2 (08:36→17:00)
[2022-04-10] MEDS: glipiZIDE 5 MG TABLET PO SCH ×2 (08:36→17:00)
[2022-04-10] MEDS: INSULIN LISPRO 100 UNIT/ML SUBCUT SCH ×4 (08:36→20:51)
[2022-04-10] MEDS: INSULIN GLARGINE 100 UNIT/ML SUBCUT SCH (08:37)
[2022-04-10] MEDS: SODIUM HYPOCHLORITE 0.25% IRRIG 473 ML BOTTLE TOP SCH (08:37)
[2022-04-10] MEDS ORDERED: LIDOCAINE 2% 5 ML VIAL ONE (11:22)
[2022-04-10] MEDS ORDERED: ETOMIDATE 40 MG/20 ML VIAL IV ONE (11:22)
[2022-04-10] MEDS ORDERED: fentaNYL 100 MCG/2 ML VIAL ONE ×2 (11:22→12:41)
[2022-04-10] MEDS ORDERED: propofoL 200 MG/20 ML VIAL IV ONE (11:22)
[2022-04-10] MEDS ORDERED: MIDAZOLAM 2 MG/2 ML VIAL ONE (11:22)
[2022-04-10] MEDS ORDERED: ONDANSETRON 4 MG/2 ML VIAL ONE (11:22)
[2022-04-10] MEDS ORDERED: SEVOFLURANE 1 UNIT/15 MINUTE INH ONE ×2 (11:22→13:33)
[2022-04-10] MEDS ORDERED: LIDOCAINE 1% 5 ML VIAL ONE (11:26)
[2022-04-10] MEDS ORDERED: ROPIVACAINE 0.5% 30 ML VIAL ONE (11:26)
[2022-04-10] MEDS ORDERED: DEXAMETHASONE 4 MG/1 ML VIAL ONE (11:26)
[2022-04-10] MEDS ORDERED: LACTATED RINGERS 1,000 ML IV SCH (11:30)
[2022-04-10] MEDS ORDERED: DEXTROSE 50% 25 GM/50 ML SYRINGE IV ONE (14:09)
[2022-04-10] MEDS ORDERED: DEXTROSE 50% 25 GM/50 ML VIAL IV ONE (14:09)
[2022-04-11 05:48] LABS: Basophils % 0.2 % (0.0-0.8); Eosinophils % 0.2 % (0.00-10.9); Hematocrit 25.8 VOL% (42.0-52.0); Hemoglobin 8.1 GM/DL (14.0-18.0); Immature Granulocytes % 1.2 %; Immature Granulocytes Absolute 0.16 #; Lymphocytes # 1.8 10*3/uL (1.4-4.0); Lymphocytes % 13.5 % (21.2-54.2); Mean Corpuscular HGB Conc 31.4 GM/DL (32-36); Mean Corpuscular Volume 88.4 FL (87-102); Mean Platelet Volume 8.7 FL (9.6-12.0); Monocytes % 7.8 % (1.7-12.7); Neutrophils % 77.1 % (38.7-73.9); Platelet Count 451 T/CUMM (130-400); Red Blood Count 2.92 MC/CUMM (3.8-5.5); Red Cell Distribution Width 13.9 % (9.3-17.3); White Blood Count 13.3 T/CUMM (4-12)
[2022-04-11 06:11] LABS: Calcium 8.4 MG/DL (8.5-10.1); Osmolality,Calculated 280.2 MOS/KG (273-304); Potassium 4.3 MMOL/L (3.5-5.1)
[2022-04-11 06:20] LABS: Hypochromia 1+; Lymphocytes 22 % (20-55); Microcytosis 1+; Platelet Estimate Adequate; Total Cells Counted 100
[2022-04-11] MEDS: glipiZIDE 5 MG TABLET PO SCH ×2 (09:03→16:44)
[2022-04-11] MEDS: SODIUM HYPOCHLORITE 0.25% IRRIG 473 ML BOTTLE TOP SCH (09:04)
[2022-04-11] MEDS: INSULIN GLARGINE 100 UNIT/ML SUBCUT SCH (09:04)
[2022-04-11] MEDS: FERROUS SULFATE 325 MG TABLET PO SCH ×2 (09:04→16:45)
[2022-04-11] MEDS: cefTRIAXone 1,000 MG in SODIUM CHLORIDE 0.9% 100 ML IV SCH (09:04)
[2022-04-11] MEDS: INSULIN LISPRO 100 UNIT/ML SUBCUT SCH ×4 (09:04→20:25)
[2022-04-11] MEDS: GABAPENTIN 300 MG CAPSULE PO SCH ×2 (15:02→20:25)
[2022-04-11] MEDS: HYDROmorphone 1 MG/1 ML SYRINGE IV PRN ×2 (16:45→20:25)
[2022-04-12 05:22] LABS: Basophils % 0.2 % (0.0-0.8); Eosinophils # 0.1 10*3/uL (0.0-0.87); Eosinophils % 0.5 % (0.00-10.9); Hematocrit 24.3 VOL% (42.0-52.0); Hemoglobin 7.7 GM/DL (14.0-18.0); Immature Granulocytes % 1.4 %; Immature Granulocytes Absolute 0.15 #; Lymphocytes # 1.9 10*3/uL (1.4-4.0); Lymphocytes % 17.1 % (21.2-54.2); Mean Corpuscular HGB Conc 31.7 GM/DL (32-36); Mean Corpuscular Volume 88.7 FL (87-102); Mean Platelet Volume 8.5 FL (9.6-12.0); Monocytes # 0.9 10*3/uL (0.11-0.8); Monocytes % 7.8 % (1.7-12.7); Platelet Count 472 T/CUMM (130-400); Red Blood Count 2.74 MC/CUMM (3.8-5.5); Red Cell Distribution Width 14.1 % (9.3-17.3); White Blood Count 11.1 T/CUMM (4-12)
[2022-04-12 05:41] LABS: Osmolality,Calculated 279.3 MOS/KG (273-304); Potassium 4.1 MMOL/L (3.5-5.1)
[2022-04-12 05:49] LABS: Platelet Estimate Normal
[2022-04-12 05:50] LABS: Anisocytosis 1+; Target Cells Few
[2022-04-12] MEDS: glipiZIDE 5 MG TABLET PO SCH (09:27)
[2022-04-12] MEDS: FERROUS SULFATE 325 MG TABLET PO SCH ×2 (09:28→16:40)
[2022-04-12] MEDS: INSULIN GLARGINE 100 UNIT/ML SUBCUT SCH (09:28)
[2022-04-12] MEDS: GABAPENTIN 300 MG CAPSULE PO SCH ×3 (09:28→20:06)
[2022-04-12] MEDS: SODIUM HYPOCHLORITE 0.25% IRRIG 473 ML BOTTLE TOP SCH (09:28)
[2022-04-12] MEDS: INSULIN LISPRO 100 UNIT/ML SUBCUT SCH ×4 (09:28→20:07)
[2022-04-12] MEDS: cefTRIAXone 1,000 MG in SODIUM CHLORIDE 0.9% 100 ML IV SCH (09:29)
[2022-04-12] MEDS: DOCUSATE SODIUM 100 MG CAPSULE PO PRN (09:36)
[2022-04-12] MEDS: SKIN HEALING OINT (AQUAPHOR) 50 GM TUBE TOP SCH (18:47)
[2022-04-13] MEDS: INSULIN LISPRO 100 UNIT/ML SUBCUT SCH ×4 (07:48→22:14)
[2022-04-13] MEDS: GABAPENTIN 300 MG CAPSULE PO SCH ×3 (08:40→22:13)
[2022-04-13] MEDS: FERROUS SULFATE 325 MG TABLET PO SCH ×2 (08:40→17:02)
[2022-04-13] MEDS: SKIN HEALING OINT (AQUAPHOR) 50 GM TUBE TOP SCH (08:40)
[2022-04-13] MEDS: cefTRIAXone 1,000 MG in SODIUM CHLORIDE 0.9% 100 ML IV SCH (08:40)
[2022-04-13] MEDS: INSULIN GLARGINE 100 UNIT/ML SUBCUT SCH (08:40)
[2022-04-13 10:20] LABS: Basophils % 0.3 % (0.0-0.8); Eosinophils # 0.1 10*3/uL (0.0-0.87); Eosinophils % 0.8 % (0.00-10.9); Hematocrit 25.6 VOL% (42.0-52.0); Hemoglobin 8.1 GM/DL (14.0-18.0); Immature Granulocytes Absolute 0.24 #; Lymphocytes % 16.8 % (21.2-54.2); Mean Corpuscular HGB Conc 31.6 GM/DL (32-36); Mean Corpuscular Volume 90.5 FL (87-102); Mean Platelet Volume 8.2 FL (9.6-12.0); Monocytes # 0.6 10*3/uL (0.11-0.8); Monocytes % 5.1 % (1.7-12.7); Platelet Count 494 T/CUMM (130-400); Red Blood Count 2.83 MC/CUMM (3.8-5.5); Red Cell Distribution Width 14.4 % (9.3-17.3); White Blood Count 11.9 T/CUMM (4-12)
[2022-04-13 10:34] LABS: Alanine Aminotransferase 36 U/L (16-61); Albumin 1.5 G/DL (3.4-5.0); Alkaline Phosphatase 159 U/L (45-117); Aspartate Amino Transferase 38 U/L (0-37); Bilirubin,Total < 0.39 MG/DL (0.20-1.00); Blood Urea Nitrogen 7 MG/DL (7-18); Calcium 8.5 MG/DL (8.5-10.1); Carbon Dioxide 28 MMOL/L (21-32); Chloride 105 MMOL/L (98-107); Glucose 194 MG/DL (74-106); Osmolality,Calculated 277.7 MOS/KG (273-304); Potassium 4.5 MMOL/L (3.5-5.1); Sodium 138 MMOL/L (136-145); Total Protein 7.3 G/DL (6.4-8.2)
[2022-04-13] MEDS: DOCUSATE SODIUM 100 MG CAPSULE PO PRN (22:14)
[2022-04-13] MEDS: PANTOPRAZOLE 40 MG TABLET PO SCH (22:16)
[2022-04-14 05:53] LABS: Basophils % 0.4 % (0.0-0.8); Eosinophils # 0.1 10*3/uL (0.0-0.87); Eosinophils % 1.1 % (0.00-10.9); Hemoglobin 8.1 GM/DL (14.0-18.0); Immature Granulocytes Absolute 0.21 #; Lymphocytes # 2.3 10*3/uL (1.4-4.0); Lymphocytes % 21.5 % (21.2-54.2); Mean Corpuscular HGB Conc 31.2 GM/DL (32-36); Mean Corpuscular Volume 91.2 FL (87-102); Mean Platelet Volume 8.3 FL (9.6-12.0); Monocytes # 0.4 10*3/uL (0.11-0.8); Monocytes % 4.1 % (1.7-12.7); Neutrophils % 70.9 % (38.7-73.9); Platelet Count 523 T/CUMM (130-400); Red Blood Count 2.85 MC/CUMM (3.8-5.5); Red Cell Distribution Width 14.4 % (9.3-17.3); White Blood Count 10.5 T/CUMM (4-12)
[2022-04-14 06:09] LABS: Alanine Aminotransferase 35 U/L (16-61); Albumin 1.6 G/DL (3.4-5.0); Alkaline Phosphatase 158 U/L (45-117); Aspartate Amino Transferase 42 U/L (0-37); Bilirubin,Total < 0.39 MG/DL (0.20-1.00); Blood Urea Nitrogen 9 MG/DL (7-18); Carbon Dioxide 29 MMOL/L (21-32); Chloride 104 MMOL/L (98-107); Glucose 166 MG/DL (74-106); Osmolality,Calculated 275.8 MOS/KG (273-304); Potassium 4.2 MMOL/L (3.5-5.1); Sodium 137 MMOL/L (136-145); Total Protein 7.3 G/DL (6.4-8.2)
[2022-04-14] MEDS: FERROUS SULFATE 325 MG TABLET PO SCH ×2 (08:40→17:05)
[2022-04-14] MEDS: PANTOPRAZOLE 40 MG TABLET PO SCH (08:40)
[2022-04-14] MEDS: GABAPENTIN 300 MG CAPSULE PO SCH ×3 (08:40→20:30)
[2022-04-14] MEDS: cefTRIAXone 1,000 MG in SODIUM CHLORIDE 0.9% 100 ML IV SCH (08:41)
[2022-04-14] MEDS: INSULIN LISPRO 100 UNIT/ML SUBCUT SCH ×3 (08:41→16:03)
[2022-04-14] MEDS: INSULIN GLARGINE 100 UNIT/ML SUBCUT SCH (08:43)
[2022-04-14] MEDS: SKIN HEALING OINT (AQUAPHOR) 50 GM TUBE TOP SCH (13:46)
[2022-04-15] MEDS: INSULIN LISPRO 100 UNIT/ML SUBCUT SCH ×5 (03:19→21:22)
[2022-04-15 06:46] LABS: Basophils % 0.5 % (0.0-0.8); Eosinophils # 0.1 10*3/uL (0.0-0.87); Eosinophils % 1.1 % (0.00-10.9); Hematocrit 26.7 VOL% (42.0-52.0); Hemoglobin 8.2 GM/DL (14.0-18.0); Immature Granulocytes % 1.7 %; Immature Granulocytes Absolute 0.15 #; Lymphocytes # 1.9 10*3/uL (1.4-4.0); Lymphocytes % 21.4 % (21.2-54.2); Mean Corpuscular HGB Conc 30.7 GM/DL (32-36); Mean Corpuscular Volume 91.1 FL (87-102); Mean Platelet Volume 8.5 FL (9.6-12.0); Monocytes # 0.4 10*3/uL (0.11-0.8); Monocytes % 4.4 % (1.7-12.7); Neutrophils % 70.9 % (38.7-73.9); Platelet Count 568 T/CUMM (130-400); Red Blood Count 2.93 MC/CUMM (3.8-5.5); Red Cell Distribution Width 14.2 % (9.3-17.3); White Blood Count 8.8 T/CUMM (4-12)
[2022-04-15 07:07] LABS: Alanine Aminotransferase 29 U/L (16-61); Albumin 1.5 G/DL (3.4-5.0); Alkaline Phosphatase 139 U/L (45-117); Aspartate Amino Transferase 28 U/L (0-37); Bilirubin,Total < 0.39 MG/DL (0.20-1.00); Blood Urea Nitrogen 9 MG/DL (7-18); Calcium 9.1 MG/DL (8.5-10.1); Carbon Dioxide 28 MMOL/L (21-32); Chloride 105 MMOL/L (98-107); Glucose 197 MG/DL (74-106); Osmolality,Calculated 280.5 MOS/KG (273-304); Potassium 4.6 MMOL/L (3.5-5.1); Sodium 139 MMOL/L (136-145); Total Protein 7.5 G/DL (6.4-8.2)
[2022-04-15] MEDS: PANTOPRAZOLE 40 MG TABLET PO SCH (08:53)
[2022-04-15] MEDS: GABAPENTIN 600 MG TABLET PO SCH ×3 (08:53→21:22)
[2022-04-15] MEDS: FERROUS SULFATE 325 MG TABLET PO SCH ×2 (08:53→16:20)
[2022-04-15] MEDS: INSULIN GLARGINE 100 UNIT/ML SUBCUT SCH (08:54)
[2022-04-15] MEDS: cefTRIAXone 1,000 MG in SODIUM CHLORIDE 0.9% 100 ML IV SCH (08:54)
[2022-04-15] MEDS: SKIN HEALING OINT (AQUAPHOR) 50 GM TUBE TOP SCH (15:38)
[2022-04-16 08:14] LABS: Basophils % 0.4 % (0.0-0.8); Eosinophils # 0.1 10*3/uL (0.0-0.87); Eosinophils % 1.2 % (0.00-10.9); Hemoglobin 8.1 GM/DL (14.0-18.0); Immature Granulocytes % 1.9 %; Immature Granulocytes Absolute 0.17 #; Lymphocytes # 1.9 10*3/uL (1.4-4.0); Lymphocytes % 20.3 % (21.2-54.2); Mean Corpuscular Volume 94.1 FL (87-102); Monocytes # 0.5 10*3/uL (0.11-0.8); Monocytes % 4.9 % (1.7-12.7); Neutrophils % 71.3 % (38.7-73.9); Platelet Count 537 T/CUMM (130-400); Red Blood Count 2.87 MC/CUMM (3.8-5.5); Red Cell Distribution Width 14.2 % (9.3-17.3); White Blood Count 9.1 T/CUMM (4-12)
[2022-04-16] MEDS: PANTOPRAZOLE 40 MG TABLET PO SCH (08:28)
[2022-04-16] MEDS: GABAPENTIN 600 MG TABLET PO SCH (08:28)
[2022-04-16] MEDS: FERROUS SULFATE 325 MG TABLET PO SCH (08:28)
[2022-04-16] MEDS: INSULIN LISPRO 100 UNIT/ML SUBCUT SCH ×2 (08:29→11:21)
[2022-04-16] MEDS: cefTRIAXone 1,000 MG in SODIUM CHLORIDE 0.9% 100 ML IV SCH (08:30)
[2022-04-16] MEDS: SKIN HEALING OINT (AQUAPHOR) 50 GM TUBE TOP SCH (08:33)
[2022-04-16] MEDS: INSULIN GLARGINE 100 UNIT/ML SUBCUT SCH (09:50)
[2022-04-16 12:27] VITALS: BP 123/73
== END 2022-04-16 16:00 | DRG 616 ==
LOC: N.ED 01:19 → SUATTDRO 03:27 → N.EDINP 03:27 → N.ICU 04:18 → N.3E 04-05 14:35
PROVIDERS: ADMIT Family Medicine; ATTEND Hospitalist

== ENCOUNTER 2022-05-22 11:05 | Inpatient (IN) ==
[2022-05-22] MEDS ORDERED: SODIUM CHLORIDE 0.9% 1,000 ML IV STA (12:31)
[2022-05-22] MEDS ORDERED: MEROPENEM 1,000 MG in SODIUM CHLORIDE 0.9% 100 ML IV STA ×2 (12:54→12:55)
[2022-05-22 13:31] LABS: Basophils % 0.2 % (0.0-0.8); Eosinophils % 0.1 % (0.00-10.9); Hematocrit 39.3 VOL% (42.0-52.0); Hemoglobin 12.5 GM/DL (14.0-18.0); Immature Granulocytes % 0.8 %; Lymphocytes # 1.2 10*3/uL (1.4-4.0); Lymphocytes % 9.2 % (21.2-54.2); Mean Corpuscular HGB Conc 31.8 GM/DL (32-36); Mean Corpuscular Volume 88.5 FL (87-102); Mean Platelet Volume 9.8 FL (9.6-12.0); Monocytes # 1.4 10*3/uL (0.11-0.8); Monocytes % 10.1 % (1.7-12.7); Neutrophils % 79.6 % (38.7-73.9); Platelet Count 329 T/CUMM (130-400); Red Blood Count 4.44 MC/CUMM (3.8-5.5); White Blood Count 13.33 T/CUMM (4-12)
[2022-05-22 13:52] LABS: Bilirubin,Total 0.5 MG/DL (0.20-1.00); Osmolality,Calculated 276.4 MOS/KG (273-304); Potassium 4.8 MMOL/L (3.5-5.1); Total Protein 9.1 G/DL (6.4-8.2)
[2022-05-22] MEDS ORDERED: ONDANSETRON 4 MG/2 ML VIAL IV PRN (14:14)
[2022-05-22] MEDS ORDERED: tiZANidine 4 MG TABLET PO PRN (14:19)
[2022-05-22] MEDS ORDERED: ALBUTEROL 2.5 MG/3 ML NEB RESP TX PRN (14:19)
[2022-05-22] MEDS ORDERED: DOCUSATE SODIUM 100 MG CAPSULE PO PRN (14:19)
[2022-05-22] MEDS ORDERED: DEXTROSE 10% 250 ML BAG IV PRN (15:22)
[2022-05-22] MEDS ORDERED: GLUCAGON 1 MG VIAL IM PRN (15:22)
[2022-05-22] MEDS ORDERED: HYDROmorphone 1 MG/1 ML SYRINGE IV PRN ×2 (15:31)
[2022-05-22] MEDS: GABAPENTIN 300 MG CAPSULE PO SCH ×2 (15:43→21:35)
[2022-05-22] MEDS: VANCOMYCIN INJ 1,000 MG in SODIUM CHLORIDE 0.9% 250 ML IV SCH (15:47)
[2022-05-22] MEDS ORDERED: FAMOTIDINE 20 MG TABLET PO ONE (16:49)
[2022-05-22 16:57] LABS: Sedimentation Rate-Westergren 37 MM/HR (0-20)
[2022-05-22] MEDS: SODIUM CHLORIDE 0.9% 1,000 ML IV SCH ×2 (17:03→21:44)
[2022-05-22] MEDS: FERROUS SULFATE 325 MG TABLET PO SCH (17:32)
[2022-05-22] MEDS: INSULIN LISPRO 100 UNIT/ML SUBCUT SCH (18:39)
[2022-05-22] MEDS: PIPERACILLIN/TAZOBACTAM 3,375 MG in SODIUM CHLORIDE 0.9% 100 ML IV SCH (21:35)
[2022-05-23] MEDS: INSULIN LISPRO 100 UNIT/ML SUBCUT SCH ×5 (01:58→22:06)
[2022-05-23] MEDS: VANCOMYCIN INJ 1,000 MG in SODIUM CHLORIDE 0.9% 250 ML IV SCH ×2 (02:22→19:58)
[2022-05-23] MEDS: DEXTROSE 5% NACL 0.9% 1,000 ML IV SCH ×3 (03:23→22:07)
[2022-05-23] MEDS: PIPERACILLIN/TAZOBACTAM 3,375 MG in SODIUM CHLORIDE 0.9% 100 ML IV SCH ×3 (04:29→22:05)
[2022-05-23 05:34] LABS: Basophils % 0.2 % (0.0-0.8); Eosinophils % 0.2 % (0.00-10.9); Hematocrit 32.3 VOL% (42.0-52.0); Hemoglobin 10.6 GM/DL (14.0-18.0); Immature Granulocytes % 0.8 %; Lymphocytes # 1.5 10*3/uL (1.4-4.0); Lymphocytes % 12.6 % (21.2-54.2); Mean Corpuscular HGB Conc 32.8 GM/DL (32-36); Mean Corpuscular Volume 88.5 FL (87-102); Mean Platelet Volume 9.3 FL (9.6-12.0); Monocytes # 1.6 10*3/uL (0.11-0.8); Monocytes % 13.1 % (1.7-12.7); Neutrophils % 73.1 % (38.7-73.9); Red Blood Count 3.65 MC/CUMM (3.8-5.5); Red Cell Distribution Width 13.9 % (9.3-17.3); White Blood Count 11.83 T/CUMM (4-12)
[2022-05-23 05:36] LABS: Platelet Count 254 T/CUMM (130-400)
[2022-05-23 06:00] LABS: Hypochromia Slight; Platelet Estimate Normal
[2022-05-23 06:09] LABS: Albumin 2.3 G/DL (3.4-5.0); Bilirubin,Total 0.5 MG/DL (0.20-1.00); Calcium 9.1 MG/DL (8.5-10.1); Osmolality,Calculated 269.2 MOS/KG (273-304); Potassium 3.9 MMOL/L (3.5-5.1); Risk Ratio 3.79; Thyroid Stimulating Hormone 1.16 uIU/ml (0.358-3.74)
[2022-05-23] MEDS: FERROUS SULFATE 325 MG TABLET PO SCH ×2 (08:52→17:09)
[2022-05-23] MEDS: PANTOPRAZOLE 40 MG TABLET PO SCH (08:52)
[2022-05-23] MEDS: GABAPENTIN 300 MG CAPSULE PO SCH ×3 (08:52→22:09)
[2022-05-23] MEDS ORDERED: LIDOCAINE 2% 5 ML VIAL ONE (08:55)
[2022-05-23] MEDS ORDERED: propofoL 200 MG/20 ML VIAL IV ONE (08:55)
[2022-05-23] MEDS ORDERED: MIDAZOLAM 2 MG/2 ML VIAL ONE (08:55)
[2022-05-23] MEDS ORDERED: fentaNYL 100 MCG/2 ML VIAL ONE (08:55)
[2022-05-23] MEDS ORDERED: LACTATED RINGERS 1,000 ML IV SCH (09:30)
[2022-05-23] MEDS ORDERED: CLINDAMYCIN INJ 900 MG/50 ML PREMIX IV ONE (10:22)
[2022-05-23] MEDS ORDERED: ONDANSETRON 4 MG/2 ML VIAL ONE (10:28)
[2022-05-23] MEDS ORDERED: PHENYLEPHRINE 1 MG/10 ML SYRINGE IV ONE (10:28)
[2022-05-23] MEDS ORDERED: SEVOFLURANE 1 UNIT/15 MINUTE INH ONE ×3 (10:28→10:32)
[2022-05-23] MEDS: INSULIN GLARGINE 100 UNIT/ML SUBCUT SCH (22:07)
[2022-05-24] MEDS: PIPERACILLIN/TAZOBACTAM 3,375 MG in SODIUM CHLORIDE 0.9% 100 ML IV SCH ×2 (05:17→12:18)
[2022-05-24 05:19] LABS: Basophils % 0.2 % (0.0-0.8); Eosinophils % 0.3 % (0.00-10.9); Hematocrit 34.4 VOL% (42.0-52.0); Immature Granulocytes % 0.6 %; Immature Granulocytes Absolute 0.06 #; Lymphocytes # 1.3 10*3/uL (1.4-4.0); Lymphocytes % 12.4 % (21.2-54.2); Mean Corpuscular Volume 87.3 FL (87-102); Mean Platelet Volume 9.4 FL (9.6-12.0); Monocytes # 1.3 10*3/uL (0.11-0.8); Monocytes % 13.3 % (1.7-12.7); Neutrophils % 73.2 % (38.7-73.9); Platelet Count 278 T/CUMM (130-400); Red Blood Count 3.94 MC/CUMM (3.8-5.5); Red Cell Distribution Width 13.6 % (9.3-17.3); White Blood Count 10.11 T/CUMM (4-12)
[2022-05-24 05:49] LABS: Osmolality,Calculated 266.7 MOS/KG (273-304); Potassium 3.9 MMOL/L (3.5-5.1)
[2022-05-24 06:03] LABS: Mucus,Urine Occasional /LPF (Occasional); Squamous Epithelial Cell,Urine Occasional /HPF (0-10)
[2022-05-24 06:04] LABS: Bilirubin,Urine Negative (Negative); Blood, Urine Negative (Negative); Glucose,Urine (UA) 100 mg/dL (Negative); Ketones,Urine Negative (Negative); Nitrite,Urine Negative (Negative); Protein,Urine 30 mg/dL (Negative); Urine Appearance Clear (Clear); Urine Color Yellow (Yellow)
[2022-05-24] MEDS: PANTOPRAZOLE 40 MG TABLET PO SCH (08:56)
[2022-05-24] MEDS: FERROUS SULFATE 325 MG TABLET PO SCH ×2 (08:56→16:41)
[2022-05-24] MEDS: GABAPENTIN 300 MG CAPSULE PO SCH ×3 (08:56→21:22)
[2022-05-24] MEDS: INSULIN LISPRO 100 UNIT/ML SUBCUT SCH ×5 (08:57→21:21)
[2022-05-24] MEDS: DEXTROSE 5% NACL 0.9% 1,000 ML IV SCH (09:25)
[2022-05-24] MEDS: VANCOMYCIN INJ 1,000 MG in SODIUM CHLORIDE 0.9% 250 ML IV SCH (10:21)
[2022-05-24] MEDS: INSULIN GLARGINE 100 UNIT/ML SUBCUT SCH (21:21)
[2022-05-24] MEDS: ACETAMINOPHEN 325 MG TABLET PO PRN (21:22)
[2022-05-25] MEDS: GABAPENTIN 300 MG CAPSULE PO SCH ×3 (08:54→22:05)
[2022-05-25] MEDS: PANTOPRAZOLE 40 MG TABLET PO SCH (08:54)
[2022-05-25] MEDS: INSULIN LISPRO 100 UNIT/ML SUBCUT SCH ×4 (08:54→22:06)
[2022-05-25] MEDS: FERROUS SULFATE 325 MG TABLET PO SCH ×2 (08:54→16:06)
[2022-05-25] MEDS ORDERED: SULFAMETHOX/TRIMETHOPRIM 800-160 MG TABLET PO SCH (09:00)
[2022-05-25] MEDS: CEFEPIME 1,000 MG in SODIUM CHLORIDE 0.9% 100 ML IV SCH ×3 (09:25→22:05)
[2022-05-25 11:49] LABS: Basophils % 0.2 % (0.0-0.8); Eosinophils % 0.2 % (0.00-10.9); Hematocrit 37.6 VOL% (42.0-52.0); Hemoglobin 12.1 GM/DL (14.0-18.0); Immature Granulocytes % 0.7 %; Immature Granulocytes Absolute 0.06 #; Lymphocytes # 1.1 10*3/uL (1.4-4.0); Lymphocytes % 12.7 % (21.2-54.2); Mean Corpuscular HGB Conc 32.2 GM/DL (32-36); Mean Corpuscular Volume 87.2 FL (87-102); Mean Platelet Volume 9.1 FL (9.6-12.0); Monocytes # 0.6 10*3/uL (0.11-0.8); Monocytes % 7.5 % (1.7-12.7); Neutrophils % 78.7 % (38.7-73.9); Platelet Count 313 T/CUMM (130-400); Red Blood Count 4.31 MC/CUMM (3.8-5.5); Red Cell Distribution Width 13.6 % (9.3-17.3)
[2022-05-25] MEDS: VANCOMYCIN INJ 1,000 MG in SODIUM CHLORIDE 0.9% 250 ML IV SCH ×2 (11:53→22:04)
[2022-05-25] MEDS: ACETAMINOPHEN 325 MG TABLET PO PRN (16:06)
[2022-05-25] MEDS: amLODIPine 10 MG TABLET PO SCH (17:43)
[2022-05-25] MEDS: INSULIN GLARGINE 100 UNIT/ML SUBCUT SCH (22:07)
[2022-05-25 23:07] LABS: Mucus,Urine Occasional /LPF (Occasional); Squamous Epithelial Cell,Urine Occasional /HPF (0-10)
[2022-05-25 23:09] LABS: Glucose,Urine (UA) Negative (Negative); Protein,Urine Trace mg/dL (Negative); Urine Appearance Clear (Clear); Urine Color Yellow (Yellow); Urine Specific Gravity 1.015 (1.001-1.035)
[2022-05-25 23:10] LABS: Bilirubin,Urine Negative (Negative); Blood, Urine Negative (Negative); Ketones,Urine Negative (Negative); Nitrite,Urine Negative (Negative); Urine Urobilinogen 0.2 eU/dL (<2.0)
[2022-05-26] MEDS: CEFEPIME 1,000 MG in SODIUM CHLORIDE 0.9% 100 ML IV SCH ×4 (04:59→21:44)
[2022-05-26 06:13] LABS: Basophils % 0.1 % (0.0-0.8); Eosinophils % 0.2 % (0.00-10.9); Hematocrit 33.2 VOL% (42.0-52.0); Hemoglobin 10.9 GM/DL (14.0-18.0); Immature Granulocytes % 0.6 %; Immature Granulocytes Absolute 0.05 #; Lymphocytes # 1.4 10*3/uL (1.4-4.0); Mean Corpuscular HGB Conc 32.8 GM/DL (32-36); Mean Platelet Volume 9.1 FL (9.6-12.0); Monocytes % 11.3 % (1.7-12.7); Neutrophils % 72.8 % (38.7-73.9); Platelet Count 323 T/CUMM (130-400); Red Blood Count 3.86 MC/CUMM (3.8-5.5); Red Cell Distribution Width 13.6 % (9.3-17.3); White Blood Count 9.01 T/CUMM (4-12)
[2022-05-26] MEDS: ACETAMINOPHEN 325 MG TABLET PO PRN ×2 (06:20→16:24)
[2022-05-26 06:58] LABS: Calcium 9.1 MG/DL (8.5-10.1); Osmolality,Calculated 266.2 MOS/KG (273-304); Potassium 3.8 MMOL/L (3.5-5.1)
[2022-05-26] MEDS: amLODIPine 10 MG TABLET PO SCH (09:16)
[2022-05-26] MEDS: INSULIN LISPRO 100 UNIT/ML SUBCUT SCH ×4 (09:16→22:15)
[2022-05-26] MEDS: PANTOPRAZOLE 40 MG TABLET PO SCH (10:31)
[2022-05-26] MEDS: GABAPENTIN 300 MG CAPSULE PO SCH ×3 (10:31→22:19)
[2022-05-26] MEDS: FERROUS SULFATE 325 MG TABLET PO SCH ×2 (10:31→17:24)
[2022-05-26] MEDS: LEVOFLOXACIN INJ 500 MG/100 ML PREMIX IV SCH (11:43)
[2022-05-26] MEDS: VANCOMYCIN INJ 1,000 MG in SODIUM CHLORIDE 0.9% 250 ML IV SCH ×2 (13:41→22:15)
[2022-05-26] MEDS: SODIUM CHLORIDE 0.9% 1,000 ML IV SCH ×2 (13:41→21:44)
[2022-05-26] MEDS: INSULIN GLARGINE 100 UNIT/ML SUBCUT SCH (22:19)
[2022-05-27] MEDS: ACETAMINOPHEN 325 MG TABLET PO PRN ×3 (00:38→22:00)
[2022-05-27] MEDS: CEFEPIME 1,000 MG in SODIUM CHLORIDE 0.9% 100 ML IV SCH ×4 (03:50→21:58)
[2022-05-27] MEDS: SODIUM CHLORIDE 0.9% 1,000 ML IV SCH ×3 (05:41→22:02)
[2022-05-27 06:17] LABS: Basophils % 0.1 % (0.0-0.8); Eosinophils % 0.1 % (0.00-10.9); Hematocrit 33.5 VOL% (42.0-52.0); Hemoglobin 10.8 GM/DL (14.0-18.0); Immature Granulocytes % 0.7 %; Immature Granulocytes Absolute 0.07 #; Lymphocytes # 1.2 10*3/uL (1.4-4.0); Lymphocytes % 12.7 % (21.2-54.2); Mean Corpuscular HGB Conc 32.2 GM/DL (32-36); Mean Corpuscular Volume 86.6 FL (87-102); Mean Platelet Volume 8.8 FL (9.6-12.0); Monocytes % 10.5 % (1.7-12.7); Neutrophils % 75.9 % (38.7-73.9); Platelet Count 331 T/CUMM (130-400); Red Blood Count 3.87 MC/CUMM (3.8-5.5); Red Cell Distribution Width 13.7 % (9.3-17.3); White Blood Count 9.36 T/CUMM (4-12)
[2022-05-27 06:38] LABS: Alanine Aminotransferase 18 U/L (16-61); Alkaline Phosphatase 102 U/L (45-117); Aspartate Amino Transferase 21 U/L (0-37); Bilirubin,Total < 0.39 MG/DL (0.20-1.00); Blood Urea Nitrogen 9 MG/DL (7-18); Calcium 8.9 MG/DL (8.5-10.1); Carbon Dioxide 25 MMOL/L (21-32); Chloride 103 MMOL/L (98-107); Glucose 95 MG/DL (74-106); Osmolality,Calculated 268.1 MOS/KG (273-304); Potassium 3.8 MMOL/L (3.5-5.1); Sodium 135 MMOL/L (136-145); Total Protein 7.8 G/DL (6.4-8.2)
[2022-05-27] MEDS: INSULIN LISPRO 100 UNIT/ML SUBCUT SCH ×4 (08:15→21:59)
[2022-05-27] MEDS: LEVOFLOXACIN INJ 500 MG/100 ML PREMIX IV SCH (10:06)
[2022-05-27] MEDS: PANTOPRAZOLE 40 MG TABLET PO SCH (10:06)
[2022-05-27] MEDS: GABAPENTIN 300 MG CAPSULE PO SCH ×3 (10:06→22:00)
[2022-05-27] MEDS: FERROUS SULFATE 325 MG TABLET PO SCH ×2 (10:06→16:50)
[2022-05-27] MEDS: amLODIPine 10 MG TABLET PO SCH (10:06)
[2022-05-27] MEDS: ENOXAPARIN 40 MG/0.4 ML SYRINGE SUBCUT SCH (12:17)
[2022-05-27] MEDS: FLUCONAZOLE 200 MG TABLET PO SCH (12:17)
[2022-05-27] MEDS: VANCOMYCIN INJ 1,000 MG in SODIUM CHLORIDE 0.9% 250 ML IV SCH ×2 (12:18→23:11)
[2022-05-27] MEDS: INSULIN GLARGINE 100 UNIT/ML SUBCUT SCH (21:59)
[2022-05-28] MEDS: CEFEPIME 1,000 MG in SODIUM CHLORIDE 0.9% 100 ML IV SCH ×2 (02:09→08:26)
[2022-05-28 04:55] LABS: Basophils % 0.2 % (0.0-0.8); Eosinophils % 0.2 % (0.00-10.9); Hematocrit 32.6 VOL% (42.0-52.0); Hemoglobin 10.2 GM/DL (14.0-18.0); Immature Granulocytes % 0.7 %; Immature Granulocytes Absolute 0.06 #; Lymphocytes # 1.2 10*3/uL (1.4-4.0); Lymphocytes % 14.3 % (21.2-54.2); Mean Corpuscular HGB Conc 31.3 GM/DL (32-36); Mean Corpuscular Volume 88.3 FL (87-102); Mean Platelet Volume 8.8 FL (9.6-12.0); Monocytes # 1.2 10*3/uL (0.11-0.8); Monocytes % 14.2 % (1.7-12.7); Neutrophils % 70.4 % (38.7-73.9); Platelet Count 332 T/CUMM (130-400); Red Blood Count 3.69 MC/CUMM (3.8-5.5); Red Cell Distribution Width 13.9 % (9.3-17.3); White Blood Count 8.32 T/CUMM (4-12)
[2022-05-28 05:24] LABS: Alanine Aminotransferase 18 U/L (16-61); Alkaline Phosphatase 104 U/L (45-117); Aspartate Amino Transferase 23 U/L (0-37); Bilirubin,Total < 0.39 MG/DL (0.20-1.00); Blood Urea Nitrogen 9 MG/DL (7-18); Carbon Dioxide 25 MMOL/L (21-32); Chloride 104 MMOL/L (98-107); Glucose 181 MG/DL (74-106); Osmolality,Calculated 271.2 MOS/KG (273-304); Sodium 134 MMOL/L (136-145); Total Protein 7.5 G/DL (6.4-8.2)
[2022-05-28] MEDS: INSULIN LISPRO 100 UNIT/ML SUBCUT SCH ×4 (08:26→21:50)
[2022-05-28] MEDS: PANTOPRAZOLE 40 MG TABLET PO SCH (08:27)
[2022-05-28] MEDS: FERROUS SULFATE 325 MG TABLET PO SCH ×2 (08:27→16:14)
[2022-05-28] MEDS: GABAPENTIN 300 MG CAPSULE PO SCH ×3 (08:27→21:50)
[2022-05-28] MEDS: FLUCONAZOLE 200 MG TABLET PO SCH (08:27)
[2022-05-28] MEDS: amLODIPine 10 MG TABLET PO SCH (08:27)
[2022-05-28] MEDS: SODIUM CHLORIDE 0.9% 1,000 ML IV SCH ×2 (10:50→22:08)
[2022-05-28] MEDS: ENOXAPARIN 40 MG/0.4 ML SYRINGE SUBCUT SCH (11:31)
[2022-05-28] MEDS: VANCOMYCIN INJ 1,000 MG in SODIUM CHLORIDE 0.9% 250 ML IV SCH (11:36)
[2022-05-28] MEDS: ACETAMINOPHEN 325 MG TABLET PO PRN ×2 (11:58→23:29)
[2022-05-28] MEDS: cefTRIAXone 1,000 MG in SODIUM CHLORIDE 0.9% 100 ML IV SCH (14:13)
[2022-05-28] MEDS: INSULIN GLARGINE 100 UNIT/ML SUBCUT SCH (21:50)
[2022-05-29 04:50] LABS: Basophils % 0.1 % (0.0-0.8); Eosinophils % 0.3 % (0.00-10.9); Hematocrit 29.2 VOL% (42.0-52.0); Hemoglobin 9.4 GM/DL (14.0-18.0); Immature Granulocytes % 0.8 %; Immature Granulocytes Absolute 0.06 #; Lymphocytes # 1.4 10*3/uL (1.4-4.0); Lymphocytes % 17.9 % (21.2-54.2); Mean Corpuscular HGB Conc 32.2 GM/DL (32-36); Mean Corpuscular Volume 88.2 FL (87-102); Mean Platelet Volume 8.8 FL (9.6-12.0); Monocytes # 0.8 10*3/uL (0.11-0.8); Monocytes % 9.9 % (1.7-12.7); Platelet Count 332 T/CUMM (130-400); Red Blood Count 3.31 MC/CUMM (3.8-5.5); White Blood Count 7.87 T/CUMM (4-12)
[2022-05-29] MEDS: INSULIN LISPRO 100 UNIT/ML SUBCUT SCH ×2 (08:24→13:01)
[2022-05-29] MEDS: FERROUS SULFATE 325 MG TABLET PO SCH (08:28)
[2022-05-29] MEDS: GABAPENTIN 300 MG CAPSULE PO SCH (08:29)
[2022-05-29] MEDS: amLODIPine 10 MG TABLET PO SCH (08:29)
[2022-05-29] MEDS: PANTOPRAZOLE 40 MG TABLET PO SCH (08:29)
[2022-05-29] MEDS: FLUCONAZOLE 200 MG TABLET PO SCH (08:29)
[2022-05-29] MEDS: SODIUM CHLORIDE 0.9% 1,000 ML IV SCH (08:33)
[2022-05-29] MEDS: cefTRIAXone 1,000 MG in SODIUM CHLORIDE 0.9% 100 ML IV SCH (08:36)
[2022-05-29 10:17] LABS: HIV Antigen/Antibody Result Nonreactive (Nonreactive)
[2022-05-29 11:56] VITALS: BP 143/76
[2022-05-29] MEDS: ACETAMINOPHEN 325 MG TABLET PO PRN (14:08)
== END 2022-05-29 14:37 | DRG 982 ==
LOC: N.EDINP 11:05 → N.ED 11:05 → N.2W 15:16 → SUATTDRO 05-24 13:18 → N.3E 05-27 09:10
PROVIDERS: ADMIT Emergency Medicine; ATTEND Internal Medicine